=== PATIENT | female | born 1930 | race Caucasian/White ===

== ENCOUNTER 2017-02-21 21:39 | Inpatient (IN) | payer MEDICARE ==
[~2017-02-21] VITALS: Ht 152.4 cm; Wt 67.1 kg
[2017-02-21] MEDS ORDERED: VALS160T2 GT (21:48)
[2017-02-21] MEDS ORDERED: VALS80TA2 PO (21:48)
[2017-02-21] MEDS ORDERED: CLON1PAT TD (21:48)
[2017-02-21] MEDS ORDERED: LISI10TA5 PO (21:48)
[2017-02-21] MEDS ORDERED: RIVA20TA PO (21:48)
[2017-02-21] MEDS ORDERED: QUET25TA PO (21:48)
--- NOTE | 2017-02-21 21:55 | NUR ---
[facility] SERVILLANCE OBTAIN AND SENT TO LAB. BELONGING LIST COMPLETED
--- NOTE | 2017-02-21 21:55 | NUR ---
MEDICALLY CLEARED BY DR BREWER
--- NOTE | 2017-02-21 22:18 | NUR ---
DR BREWER AWARE OF BLOOD PRESSURE. PT REFUSED TO HAVE PCXR AND HTN PILL
[2017-02-21] MEDS ORDERED: MAG HYDROX/AL HYDROX/SIMETH 30 ML LIQUID UDC PO PRN (23:00)
[2017-02-21] MEDS ORDERED: MAGNESIUM HYDROXIDE 30 ML LIQUID UDC PO PRN (23:00)
[2017-02-21] MEDS ORDERED: TEMAZEPAM 7.5 MG CAPSULE PO PRN (23:00)
[2017-02-21] MEDS ORDERED: ACETAMINOPHEN 325 MG TABLET PO PRN (23:00)
[2017-02-21 23:30] VITALS: BP 167/79
[2017-02-21] MEDS ORDERED: OLANZAPINE 10 MG VIAL IM ONE (23:45)
--- NOTE | 2017-02-21 23:55 | NUR ---
ADMITTING NOTE: Patient is a 86 yr old female admitted from [facility], arrived to [facility] on a 5150 for Danger to Others and Grave disability. Hold began 02/21/17 at 1800. Medical history according to medical records include hypertension, hypercholesterolemia, pneumonia, paroxysmal atrial fibrillation, vertigo and suffers from dizzy spells. Patient cleared by [place], and ER Doctor here at [facility], arrived to the unit at 2230 via gurney, patient appeared disheveled/unkempt appearance, alert, oriented to self. Confused, irritable and with apparent increased agitation and anxiety. Patient under the care of Dr. Leon psychiatrist and Dr. Henry, attending physician. Doctor's notified of admission, orders obtained and carried out accordingly. Patient refused to sign admitting paperwork and began to demand she be given her belongings, staff made several attempts to orient patient to surroundings approaching patient in a calm and reassuring manner however patient became increasingly hostile, and verbally abusive towards staff, threatening staff, angry, unable to redirect. Patient escalated through out the interviewing process and became more disruptive, at this time affecting other patient's on unit declined PO PRN for agitation. Psychiatrist made aware of current behavior. One time order administered IM on left deltoid. Will monitor patient for any adverse reactions, as well as Q 15 minute observation for safety. Daughter aware of patient condition.
[2017-02-22 07:30] VITALS: BP 166/81
[2017-02-22] MEDS: LISINOPRIL 10 MG TABLET PO SCH (09:09)
--- NOTE | 2017-02-22 10:09 | NUR ---
patient refused chest x -ray in spite of the explanation, Patient stated that she had done at the other hospital. also, refused blood drawn this morning.
[2017-02-22] MEDS: CLONIDINE-TTS 1 PATCH TD SCH (10:45)
[2017-02-22] MEDS ORDERED: QUETIAPINE FUMARATE 25 MG TABLET PO ONE (13:15)
--- NOTE | 2017-02-22 13:20 | NUR ---
1250 patient found standing in front of the door, wanting to leave and gets agitated when redirected Dr. Leon witnessed patient behavior with order seroquel 12.5 mg po x1 only. 1316 Offered to patient seroquel 12.5 mg po x1 , explained the indications but patient strongly refused stated " I don't need it, I'm no mentally ill.'
[2017-02-22] MEDS: SERTRALINE HCL 50 MG TABLET PO SCH (14:15)
[2017-02-22] MEDS ORDERED: QUETIAPINE FUMARATE 25 MG TABLET PO PRN (14:15)
[2017-02-22 15:15] VITALS: BP 167/90
[2017-02-22] MEDS: RIVAROXABAN 10 MG TABLET PO SCH (18:05)
[2017-02-22 20:00] VITALS: BP 142/82
[2017-02-22] MEDS: LORAZEPAM 0.5 MG TABLET PO PRN (23:36)
--- NOTE | 2017-02-23 06:42 | NUR ---
GPS: Pt. refused blood drawing at this time despite explanation of importance. Stated "I'm not sick". Pt.gets easily agitated when being persuaded. Poor insight to present situation. Charge nurse made aware.
[2017-02-23 07:30] VITALS: BP 160/89
[2017-02-23] MEDS: LISINOPRIL 10 MG TABLET PO SCH (08:14)
[2017-02-23] MEDS: SERTRALINE HCL 50 MG TABLET PO SCH (08:24)
--- NOTE | 2017-02-23 08:25 | NUR ---
patient refused psychotropic medication: seroquel and zoloft tab. as ordered. Patient educated about medication indications but strongly refused stated " I'm not taking it, I'm not crazy."
[2017-02-23] MEDS ORDERED: QUETIAPINE FUMARATE 25 MG TABLET PO SCH (09:00)
[2017-02-23] MEDS: OLANZAPINE ZYDIS 5 MG TAB.RAPDIS PO SCH ×2 (13:30→17:30)
[2017-02-23 15:27] VITALS: BP 158/83
[2017-02-23] MEDS: RIVAROXABAN 10 MG TABLET PO SCH (17:35)
[2017-02-23 19:45] VITALS: BP 176/89
[2017-02-23 21:12] VITALS: BP 136/63
[2017-02-24 07:30] VITALS: BP 188/92
[2017-02-24] MEDS: LISINOPRIL 10 MG TABLET PO SCH ×2 (08:25→19:42)
[2017-02-24] MEDS: SERTRALINE HCL 50 MG TABLET PO SCH (08:25)
[2017-02-24] MEDS: OLANZAPINE ZYDIS 5 MG TAB.RAPDIS PO SCH ×3 (08:25→19:54)
[2017-02-24 09:26] VITALS: BP 152/83
--- NOTE | 2017-02-24 14:06 | NUR ---
Initial discharge instructionsL Patient resides at home alone [[address],[address];[phone]].Per pt,she would like to return home upon discharge.Spoke with pt's daughter,Rut [phone] who stated she would like the patient to return home.Per Rut,she lives on the same street as her mother.Rut denied SNF placement,and stated she will be hiring a caregiver for her mother.SW will speak with patient,family,and MD regarding appropriate discharge plans.SW will form a safe and proper discharge.
[2017-02-24 15:53] VITALS: BP 154/89
[2017-02-24] MEDS: RIVAROXABAN 10 MG TABLET PO SCH ×2 (18:00→19:43)
[2017-02-24 20:46] VITALS: BP 188/81
[2017-02-24 21:16] VITALS: BP 140/78
--- NOTE | 2017-02-25 07:16 | NUR ---
GPS: Pt. refused blood drawing again for this a.m including CXR despite explanation of importance. Gets easily agitated when being persuaded. Poor insight to present situation. Charge nurse notified.
[2017-02-25 07:30] VITALS: BP 141/79
[2017-02-25] MEDS: SERTRALINE HCL 50 MG TABLET PO SCH ×2 (09:00→19:17)
[2017-02-25] MEDS: LISINOPRIL 10 MG TABLET PO SCH (09:00)
[2017-02-25] MEDS: OLANZAPINE ZYDIS 5 MG TAB.RAPDIS PO SCH ×3 (09:00→19:18)
[2017-02-25] MEDS ORDERED: OLANZAPINE 10 MG VIAL IM PRN (10:15)
[2017-02-25 16:51] VITALS: BP 176/82
--- NOTE | 2017-02-25 18:33 | NUR ---
Georgette Wise NP Notified of patients high blood, patient previously on Diovan but withheld on admission. Orders received to restart 80mg of Diovan daily, start now.
[2017-02-25 18:42] VITALS: BP 213/89
[2017-02-25] MEDS: hydrALAZINE HCL 25 MG TABLET PO PRN (18:42)
[2017-02-25] MEDS: RIVAROXABAN 10 MG TABLET PO SCH (18:45)
[2017-02-25] MEDS: VALSARTAN 80 MG TABLET PO SCH (19:09)
[2017-02-25 20:00] VITALS: BP 176/80
[2017-02-25 21:10] VITALS: BP 135/66
--- NOTE | 2017-02-26 06:47 | NUR ---
GPS: Refused am labs again despite explanation of importance. Numerous attempts made by staff but unsuccessful. Pt.easily irritable when being persuaded. Charge nurse made aware.
[2017-02-26 07:30] VITALS: BP 156/73
[2017-02-26] MEDS: LISINOPRIL 10 MG TABLET PO SCH (08:35)
[2017-02-26] MEDS: SERTRALINE HCL 50 MG TABLET PO SCH (08:35)
[2017-02-26] MEDS: VALSARTAN 80 MG TABLET PO SCH (08:45)
[2017-02-26] MEDS: OLANZAPINE ZYDIS 5 MG TAB.RAPDIS PO SCH ×2 (09:35→17:20)
[2017-02-26 16:00] VITALS: BP 133/82
[2017-02-26] MEDS: RIVAROXABAN 10 MG TABLET PO SCH (17:29)
[2017-02-26 20:00] VITALS: BP 163/78
[2017-02-26] MEDS: hydrALAZINE HCL 25 MG TABLET PO PRN (20:15)
[2017-02-26] MEDS: LORAZEPAM 0.5 MG TABLET PO PRN (20:16)
[2017-02-26 21:00] VITALS: BP 138/74
[2017-02-27 07:30] VITALS: BP 161/79
[2017-02-27] MEDS: LISINOPRIL 10 MG TABLET PO SCH (08:53)
[2017-02-27] MEDS: OLANZAPINE ZYDIS 5 MG TAB.RAPDIS PO SCH ×2 (08:53→20:07)
[2017-02-27] MEDS: VALSARTAN 80 MG TABLET PO SCH (09:00)
[2017-02-27] MEDS: SERTRALINE HCL 50 MG TABLET PO SCH (10:12)
[2017-02-27 10:14] LABS: BASOPHILS % (AUTO) 0.6 % (0.0-2.0); EOSINOPHILS # (AUTO) 0.2 K/uL (0.0-0.7); EOSINOPHILS % (AUTO) 3.2 % (0.0-7.0); HEMATOCRIT 39.9 % (37.0-47.0); HEMOGLOBIN 13.4 g/dL (12.0-16.0); LYMPHOCYTES # (AUTO) 1.1 K/uL (0.8-4.8); MEAN CORPUSCULAR HEMOGLOBIN 30.5 uug (27.0-31.0); MEAN CORPUSCULAR HGB CONC 34 g/dL (32.0-37.0); MEAN CORPUSCULAR VOLUME 90.7 fL (81.0-99.0); MONOCYTES # (AUTO) 0.5 K/uL (0.1-1.30); MONOCYTES % (AUTO) 7.9 % (0.0-11.0); NEUTROPHILS # (AUTO) 4.9 K/uL (1.8-8.9); NEUTROPHILS % (AUTO) 71.3 % (38.5-71.5); PLATELET COUNT (AUTO) 268 K/uL (150-450); RED CELL DISTRIBUTION WIDTH 13.2 % (11.5-14.5); WHITE BLOOD COUNT (AUTO) 6.7 K/uL (4.0-11.2)
[2017-02-27 10:31] LABS: ALBUMIN 3.3 g/dL (3.4-5.0); BILIRUBIN,TOTAL 0.5 mg/dL (0.2-1.0); CALCIUM 8.7 mg/dL (8.5-10.1); CREATININE 1.2 mg/dL (0.6-1.3); MAGNESIUM 1.8 mg/dL (1.8-2.4); PHOSPHOROUS 3.5 mg/dL (2.5-4.9); POTASSIUM 4.2 mmol/L (3.5-5.1); TOTAL PROTEIN, SERUM 6.6 g/dL (6.4-8.2)
[2017-02-27 10:38] LABS: THYROID STIMULATING HORMONE 2.459 mIU/mL (0.358-3.740)
[2017-02-27] MEDS: BLOOD SUGAR DIAGNOSTIC 1 EACH STRIP VI SCH (17:17)
[2017-02-27] MEDS: RIVAROXABAN 15 MG TABLET PO SCH (17:35)
[2017-02-27 20:00] VITALS: BP 162/76
[2017-02-27] MEDS: ATORVASTATIN 10 MG TABLET PO SCH (20:20)
[2017-02-27 21:40] VITALS: BP 141/74
--- NOTE | 2017-02-27 21:50 | NUR ---
PATIENT RECEIVED IN BED AWAKE. ALERT ORIENTED X1. PATIENT REQUIRES FREQUENT PROMPTING WITH MEDICATION ADMINISTRATION, COMPLAINT WITH HS MEDICATION. BLOOD PRESSURE 162/76 AFTER TAKING ZYPREXA ORDERED, BLOOD PRESSURE 141/74. NO AGGRESSIVE OR COMBATIVE BEHAVIOR NOTED WILL CONTINUE TO MONITOR AND REDIRECT NEEDED. BED IN LOWEST POSITION, BED LOCKED AND ALARM ON WHILE IN BED. PATIENT IS EASILY AGITATED, AND EASILY IRRITABLE WILL CONTINUE TO MONITOR AND REDIRECT NEEDED.
[2017-02-28] MEDS: BLOOD SUGAR DIAGNOSTIC 1 EACH STRIP VI SCH ×2 (06:32→16:43)
[2017-02-28 07:30] VITALS: BP 157/77
[2017-02-28] MEDS: LISINOPRIL 10 MG TABLET PO SCH (08:55)
[2017-02-28] MEDS: SERTRALINE HCL 50 MG TABLET PO SCH (08:55)
[2017-02-28] MEDS: VALSARTAN 80 MG TABLET PO SCH (08:55)
[2017-02-28] MEDS: OLANZAPINE ZYDIS 5 MG TAB.RAPDIS PO SCH ×2 (08:56→20:08)
[2017-02-28 15:13] VITALS: BP 158/71
[2017-02-28] MEDS: RIVAROXABAN 15 MG TABLET PO SCH (17:03)
[2017-02-28] MEDS: ATORVASTATIN 10 MG TABLET PO SCH (20:08)
[2017-02-28 20:10] VITALS: BP 124/64
[2017-02-28] MEDS: AMLODIPINE 5 MG TABLET PO SCH (20:30)
[2017-03-01] MEDS: BLOOD SUGAR DIAGNOSTIC 1 EACH STRIP VI SCH ×2 (06:44→16:37)
--- NOTE | 2017-03-01 06:56 | NUR ---
GPS: REMAIN CALM AND COOPERATIVE. NO AGITATION NOTED. BLOOD SUGAR 104 MG/DL. SLEPT 9 HRS THROUGH THE NIGHT. CONTINUE PLAN OF CARE.
[2017-03-01 07:30] VITALS: BP 115/52
[2017-03-01] MEDS: OLANZAPINE ZYDIS 5 MG TAB.RAPDIS PO SCH ×2 (08:51→20:10)
[2017-03-01] MEDS: SERTRALINE HCL 50 MG TABLET PO SCH (08:51)
[2017-03-01] MEDS: AMLODIPINE 5 MG TABLET PO SCH ×2 (08:52→20:11)
[2017-03-01] MEDS: LISINOPRIL 10 MG TABLET PO SCH (08:52)
[2017-03-01] MEDS: CLONIDINE-TTS 1 PATCH TD SCH (10:44)
[2017-03-01 16:00] VITALS: BP 165/78
[2017-03-01] MEDS: RIVAROXABAN 15 MG TABLET PO SCH (17:19)
[2017-03-01 19:57] VITALS: BP 142/79
--- NOTE | 2017-03-01 20:00 | NUR ---
RECEIVED PATIENT FOLDING CLOSE IN ROOM. PLEASANT UPON APPROACH. CALM AND COOPERATIVE. NO AGITATION/NO AGGRESSIVE BEHAVIOR NOTED. DENIES ANY PAIN OR DISCOMFORT AT THIS TIME.ABLE TO VOICE NEEDS.WILL CONTINUE TO MONITOR.
[2017-03-01] MEDS: ATORVASTATIN 10 MG TABLET PO SCH (20:10)
[2017-03-02] MEDS: BLOOD SUGAR DIAGNOSTIC 1 EACH STRIP VI SCH ×2 (06:33→18:06)
--- NOTE | 2017-03-02 06:44 | NUR ---
PATIENT SLEPT WELL, NO ACUTE DISTRESS PER SHIFT. NO BEHAVIORS NOTED. SLEPT 7.5HRS. WILL ENDORSE PLAN OF CARE TO INCOMING NURSE.
[2017-03-02 07:30] VITALS: BP 150/75
[2017-03-02] MEDS: LISINOPRIL 10 MG TABLET PO SCH (08:15)
[2017-03-02] MEDS: AMLODIPINE 5 MG TABLET PO SCH ×2 (08:15→20:03)
[2017-03-02] MEDS: SERTRALINE HCL 50 MG TABLET PO SCH (08:16)
[2017-03-02] MEDS: OLANZAPINE ZYDIS 5 MG TAB.RAPDIS PO SCH ×2 (08:16→20:03)
--- NOTE | 2017-03-02 08:30 | NUR ---
GPS: NOTE PATIENT WAS RECEIVED IN THE ACTIVITY ROOM AWAKE AND ALERT. SHE IS AMBULATORY . DENIES ANY PAIN. WILL CONTINUE TO MONITOR THE PATIENT AND ADDRESS ANY NEEDS SHE MAY HAVE DURING THIS SHIFT.
[2017-03-02 16:00] VITALS: BP 166/76
[2017-03-02] MEDS: RIVAROXABAN 15 MG TABLET PO SCH (17:39)
[2017-03-02 20:03] VITALS: BP 148/70
[2017-03-02] MEDS: ATORVASTATIN 10 MG TABLET PO SCH (20:03)
--- NOTE | 2017-03-02 20:51 | NUR ---
PATIENT RECEIVED IN BED AWAKE. ALERT ORIENTED X2.PATIENT PLEASANT UPON APPROACH.PATIENT REQUIRES FREQUENT PROMPTING WITH MEDICATION ADMINISTRATION, COMPLAINT WITH HS MEDICATION. BLOOD PRESSURE 148/70. NO AGGRESSIVE OR COMBATIVE BEHAVIOR NOTED WILL CONTINUE TO MONITOR AND REDIRECT NEEDED. BED IN LOWEST POSITION, BED LOCKED AND ALARM ON WHILE IN BED. PATIENT IS EASILY AGITATED, AND EASILY IRRITABLE WILL CONTINUE TO MONITOR AND REDIRECT NEEDED.
[2017-03-03] MEDS: BLOOD SUGAR DIAGNOSTIC 1 EACH STRIP VI SCH ×2 (06:46→16:42)
[2017-03-03 07:51] VITALS: BP 136/80
[2017-03-03 08:08] LABS: BASOPHILS # (AUTO) 0.1 K/uL (0.0-0.2); BASOPHILS % (AUTO) 0.7 % (0.0-2.0); EOSINOPHILS # (AUTO) 0.4 K/uL (0.0-0.7); EOSINOPHILS % (AUTO) 4.7 % (0.0-7.0); HEMATOCRIT 39.8 % (37.0-47.0); HEMOGLOBIN 13.4 g/dL (12.0-16.0); LYMPHOCYTES # (AUTO) 1.4 K/uL (0.8-4.8); LYMPHOCYTES % (AUTO) 19.4 % (20.5-51.5); MEAN CORPUSCULAR HEMOGLOBIN 30.7 uug (27.0-31.0); MEAN CORPUSCULAR HGB CONC 34 g/dL (32.0-37.0); MEAN CORPUSCULAR VOLUME 90.9 fL (81.0-99.0); MONOCYTES # (AUTO) 0.6 K/uL (0.1-1.30); MONOCYTES % (AUTO) 7.7 % (0.0-11.0); NEUTROPHILS % (AUTO) 67.5 % (38.5-71.5); PLATELET COUNT (AUTO) 246 K/uL (150-450); RED BLOOD CELL COUNT(AUTO) 4.38 MIL/uL (4.20-5.40); RED CELL DISTRIBUTION WIDTH 12.8 % (11.5-14.5); WHITE BLOOD COUNT (AUTO) 7.5 K/uL (4.0-11.2)
[2017-03-03 08:34] LABS: ALBUMIN 3.3 g/dL (3.4-5.0); BILIRUBIN,TOTAL 0.7 mg/dL (0.2-1.0); CALCIUM 8.8 mg/dL (8.5-10.1); CREATININE 1.1 mg/dL (0.6-1.3); PHOSPHOROUS 3.5 mg/dL (2.5-4.9); POTASSIUM 4.2 mmol/L (3.5-5.1); TOTAL PROTEIN, SERUM 6.7 g/dL (6.4-8.2)
[2017-03-03] MEDS: OLANZAPINE ZYDIS 5 MG TAB.RAPDIS PO SCH ×2 (08:39→16:16)
[2017-03-03] MEDS: LISINOPRIL 10 MG TABLET PO SCH (08:40)
[2017-03-03] MEDS: AMLODIPINE 5 MG TABLET PO SCH ×2 (08:40→20:29)
[2017-03-03] MEDS: SERTRALINE HCL 50 MG TABLET PO SCH (09:13)
[2017-03-03] MEDS ORDERED: OLANZAPINE 10 MG VIAL IM PRN (10:30)
[2017-03-03 16:49] VITALS: BP 112/64
[2017-03-03] MEDS: RIVAROXABAN 15 MG TABLET PO SCH (17:00)
[2017-03-03] MEDS: ATORVASTATIN 10 MG TABLET PO SCH (20:28)
[2017-03-03 21:30] VITALS: BP 159/65
--- NOTE | 2017-03-03 22:45 | NUR ---
PATIENT RECEIVED IN BED AWAKE. ALERT ORIENTED X2.PATIENT PLEASANT UPON APPROACH.PATIENT REQUIRES FREQUENT PROMPTING WITH MEDICATION ADMINISTRATION, COMPLAINT WITH HS MEDICATION. BLOOD PRESSURE 159/65 NO AGGRESSIVE OR COMBATIVE BEHAVIOR NOTED WILL CONTINUE TO MONITOR AND REDIRECT NEEDED. BED IN LOWEST POSITION, BED LOCKED AND ALARM ON WHILE IN BED. PATIENT IS EASILY AGITATED, AND EASILY IRRITABLE WILL CONTINUE TO MONITOR AND REDIRECT NEEDED.
[2017-03-04] MEDS: BLOOD SUGAR DIAGNOSTIC 1 EACH STRIP VI SCH ×2 (06:32→16:30)
[2017-03-04 07:30] VITALS: BP 116/66
[2017-03-04] MEDS: AMLODIPINE 5 MG TABLET PO SCH (09:00)
[2017-03-04] MEDS: LISINOPRIL 10 MG TABLET PO SCH (09:00)
[2017-03-04] MEDS: OLANZAPINE ZYDIS 5 MG TAB.RAPDIS PO SCH (09:48)
--- NOTE | 2017-03-04 10:36 | NUR ---
DC Note: Patient will be discharged today back home [[address], [place], [address]; [phone]] via private transportation. Spoke with patients daughter, Rut Blankenship [phone] who stated she would pick up and delivery driver the patient today. Rut is aware and agreeable with discharge plans. Per Rut, she will arrange a 24-hour caregiver for the patient once she returns home. Patient is aware and agreeable with discharge plans. A Home Health order was faxed to Barbra with [facility] [ / Fx: [phone]] for medication management. Patient will follow-up with ([facility]) [[address], [place] [address]; ] and was referred to , , and [phone] for psychiatric referrals.
--- NOTE | 2017-03-04 16:35 | NUR ---
patient discharged home with daughter and with f/u instructions for care. PT WILL b followed by [facility] and they have been osullivan d to let them know pt has been d/c d home. Pt left with her own meds from pharmacy until d/c .t left with all belongings in no acute distress and denies s.i. or h.i , vital signs stable .pt left by private car with daughter.
--- NOTE | 2017-03-04 16:40 | NUR ---
pt d/c d befoe 16 30 and accu check not needed at 15 45, last blood sugar was 119 and pt asymptomatic of hypo or hyper glycemia
[2017-03-04 16:41] VITALS: BP 133/71
== END 2017-03-04 15:30 | disposition home health service (06) | DRG 885 ==
LOC: ER 21:45 → GPS 22:23
PROVIDERS: ADMIT Psychiatry & Neurology Psychosomatic Medicine; ATTEND Psychiatry & Neurology Psychosomatic Medicine
DX: F29 Unspecified psychosis not due to a substance or known physiological condition (principal); F02.81 Dementia in other diseases classified elsewhere, unspecified severity, with behavioral disturbance; N17.0 Acute kidney failure with tubular necrosis; E11.65 Type 2 diabetes mellitus with hyperglycemia; D68.59 Other primary thrombophilia; E87.0 Hyperosmolality and hypernatremia; G30.9 Alzheimer's disease, unspecified; I10 Essential (primary) hypertension; Z88.2 Allergy status to sulfonamides; Z91.041 Radiographic dye allergy status; Z91.040 Latex allergy status; E78.5 Hyperlipidemia, unspecified; I48.0 Paroxysmal atrial fibrillation; Z74.09 Other reduced mobility; Z91.19 Patient's noncompliance with other medical treatment and regimen; Z87.01 Personal history of pneumonia (recurrent); Z90.710 Acquired absence of both cervix and uterus
CPT/HCPCS: 36415; 83735; 84100; 84443; 85025; 93005; 97001; A4663; J2358